=== PATIENT | male | born 1985 | race Asian ===

== ENCOUNTER 2021-02-04 00:46 | Emergency (ER) | payer OTHER ==
[2021-02-04 01:18] VITALS: BP 115/86; PULSE 83; TEMP 98.2; BMI 22.1
== END 2021-02-04 02:46 | disposition home or self-care (01) ==
LOC: JER 00:46
DX: Z11.52 Encounter for screening for COVID-19 (principal)
CPT/HCPCS: 99281-25; C9803; U0003; U0005